=== PATIENT | female | born 1965 | race Asian ===

== ENCOUNTER 2023-06-21 15:50 | Outpatient (AMB) | payer OTHER, SELFPAY ==
[2023-06-21 16:18] VITALS: BP 148/90; PULSE 72; O2SAT 98; BMI 27.2
--- NOTE | 2023-06-21 16:18 | HO.NEPHOV ---
HPI HPI Comments History of Present Illness Details I had the privilege of seeing Chacha in follow-up of her proteinuria and hypertension. She has been going through a lot of family stressors. Her antihypertensive medication had been adjusted lately due to fluctuant blood pressures. She does not have any chest pain, shortness of breath, paroxysmal nocturnal dyspnea, orthopnea, pedal edema, orthostatic symptoms, hematuria or dysuria. She does not have any foam or froth in the urine. She is compliant with her medications. She tries to maintain herself with a good hydration and avoid nonsteroidal anti-inflammatories. All other systems were reviewed and were negative. [facility] Medical History (Updated 06/21/23 @ 20:41 by Micah Coleman MD) Hypertension Proteinuria Family History (Updated 06/21/23 @ 16:22 by Alyssa Davis MA) Mother Diabetes Hypertension Social History (Updated 06/21/23 @ 16:22 by Alyssa Davis MA) Alcohol intake: never Patient Tobacco Use Status: Never used Tobacco Vital Signs 06/21/23 16:18 Height 5 ft Weight 139 lb 8 oz BMI 27.2 BP 148/90 H Blood Pressure Location Lt brachial Position Sitting Pulse 72 Pulse Source Pulse Oximeter Pulse Oximetry (%) 98 Oxygen Delivery Method Room Air Physical Exam Vital Signs: Last Vital Signs Pulse 72 06/21/23 16:18 BP 148/90 H 06/21/23 16:18 Pulse Ox 98 06/21/23 16:18 Oxygen Delivery Method Room Air 06/21/23 16:18 BMI result Body Mass Index 27.2 Const General: comfortable and no acute distress Orientation/consciousness: patient oriented x3 HEENT Head: Yes normocephalic Mouth: Normal oral and palatal mucosa present Eyes EOM: EOMs intact bilaterally Neck Neck: Yes supple Resp Auscultation: clear to auscultation bilaterally Cardio Jugular venous distension: no JVD Rate: regular rate GI Palpation (GI): Soft to palpation Auscultation: normal bowel sounds General: Yes no CVA tenderness Back/Spine/Pelvis Back: no CVA tenderness Skin General skin exam: no rashes or lesions noted Neuro General: patient oriented x3 and moves all extremities Extrem General: Yes no pedal edema Assessment & Plan Assessment & Plan (1) Proteinuria: Code(s): R80.9 - Proteinuria, unspecified Qualifiers: Proteinuria type: other Qualified Code(s): R80.8 - Other proteinuria (2) Hypertension: Code(s): I10 - Essential (primary) hypertension Qualifiers: Hypertension type: primary hypertension Qualified Code(s): I10 - Essential (primary) hypertension Plan Chacha has hypertension for long time. She had proteinuria which had been stable. Her blood pressure has been fluctuant lately. She has been prescribed valsartan 160 mg twice daily but she has been taking only once a day. I increased her valsartan to 240 mg once daily. She could continue her current dose of hydrochlorothiazide. She needs to maintain good hydration and avoid nonsteroidal anti-inflammatories. She should cut back salt in the diet. I ordered follow-up blood work. She is going to see me in a month time for optimization of her medication regimen. Answered all questions. Follow-up appointment given. Orders: Orders Creatinine Today I10 - Essential (primary) hypertension, R80.9 - Proteinuria, unspecified Electrolytes Today I10 - Essential (primary) hypertension, R80.9 - Proteinuria, unspecified Blood Urea Nitrogen Today I10 - Essential (primary) hypertension, R80.9 - Proteinuria, unspecified Protein Creatinine Ratio, Ur Today I10 - Essential (primary) hypertension, R80.9 - Proteinuria, unspecified Medications: New valsartan 240 mg (1.5 x 160 mg) PO DAILY 30 days 45 tabs 3RF valsartan 240 mg (1.5 x 160 mg) PO DAILY 30 days 45 tabs 3RF Coding Level of Care Code Est Pt Level 4 (92866) Diagnoses Other proteinuria R80.8 Proteinuria type: other Primary hypertension I10 Hypertension type: primary hypertension Results Reviewed Nephrology Results: No Data to Display
== END 2023-06-21 16:46 | disposition home or self-care (01) ==
PROVIDERS: Visit Provider Internal Medicine Nephrology
DX: R80.8 Other proteinuria (principal); I10 Essential (primary) hypertension
CPT/HCPCS: 99214

== ENCOUNTER → 2023-06-21 15:50 | Outpatient (BNVA) | payer OTHER, SELFPAY | PROVIDERS: Visit Provider Internal Medicine Nephrology | DX: I10 Essential (primary) hypertension (principal); R80.8 Other proteinuria | CPT/HCPCS: 99212 ==

== ENCOUNTER 2023-07-14 12:28 | Outpatient (REF) | payer OTHER, SELFPAY ==
[2023-07-14 17:06] LABS: Anion Gap 11 (12-20); Blood Urea Nitrogen 20 mg/dL (9-16); Carbon Dioxide 29 mmol/L (22-29); Chloride 103 mmol/L (96-108); Estimated Glomerular Filt Rate > 60; Potassium 3.7 mmol/L (3.3-5.1); Sodium 139 mmol/L (135-145)
[2023-07-14 17:28] LABS: Creatinine Urine 50.51 mg/dL; Protein/Creatinine Ratio, Ur 0.16 (<0.2); Total Protein Urine Random 8 mg/dL (<12)
== END 2023-07-14 12:29 | disposition home or self-care (01) ==
LOC: HO.HKASLDS 12:28
PROVIDERS: Visit Provider Internal Medicine Nephrology
DX: R80.9 Proteinuria, unspecified (principal); I10 Essential (primary) hypertension
CPT/HCPCS: 36415; 80051; 82565; 82570; 84156; 84520

== ENCOUNTER 2023-07-21 16:02 | Outpatient (AMB) | payer OTHER, SELFPAY ==
[2023-07-21 16:21] VITALS: BP 160/90; PULSE 65; O2SAT 96; BMI 27.2
--- NOTE | 2023-07-21 16:21 | HO.NEPHOV_ITS ---
Vital Signs 07/21/23 16:21 Height 5 ft Weight 139 lb 8 oz BMI 27.2 BP 160/90 H Blood Pressure Location Lt brachial Position Sitting Pulse 65 Pulse Source Pulse Oximeter Pulse Oximetry (%) 96 Oxygen Delivery Method Room Air Intake Visit Reasons: 1 mon follow up/ LVM Weight Inspector Required: No Accompanied by: Self / Same As Patient Allergies acetaminophen [From Tylenol] Allergy (Verified 07/21/23 16:23) Unknown prochlorperazine [From Compazine] Allergy (Verified 07/21/23 16:23) Unknown sulfur dioxide Allergy (Verified 07/21/23 16:23) Unknown HPI Comments Details: I had the privilege of seeing Chacha in follow-up of her proteinuria and hypertension. She has been going through a lot of family stressors. Her antihypertensive medication had been adjusted lately due to fluctuant blood pressures. She does not have any chest pain, shortness of breath, paroxysmal nocturnal dyspnea, orthopnea, pedal edema, orthostatic symptoms, hematuria or dysuria. She does not have any foam or froth in the urine. She is compliant with her medications. She tries to maintain herself with a good hydration and avoid nonsteroidal anti-inflammatories. All other systems were reviewed and were negative. [facility] Medical History (Updated 06/21/23 @ 20:41 by Micah Coleman MD) Hypertension Proteinuria Family History Mother Diabetes Hypertension Social History Alcohol intake: never Patient Tobacco Use Status: Never used Tobacco Physical Exam Vital Signs: Last Vital Signs Pulse 65 07/21/23 16:21 BP 160/90 H 24 16:21 Pulse Ox 96 07/21/23 16:21 Oxygen Delivery Method Room Air 07/21/23 16:21 BMI result Body Mass Index 27.2 Const General: comfortable and no acute distress Orientation/consciousness: patient oriented x3 HEENT Head: Yes normocephalic Mouth: Normal oral and palatal mucosa present Eyes EOM: EOMs intact bilaterally Neck Neck: Yes supple Resp Auscultation: clear to auscultation bilaterally Cardio Jugular venous distension: no JVD Rate: regular rate GI Palpation (GI): Soft to palpation Auscultation: normal bowel sounds General: Yes no CVA tenderness Back/Spine/Pelvis Back: no CVA tenderness Skin General skin exam: no rashes or lesions noted Neuro General: patient oriented x3 and moves all extremities Extrem General: Yes no pedal edema Results Reviewed Nephrology Results: Sodium 139 mmol/L (135-145) 07/14/23 Potassium 3.7 mmol/L (3.3-5.1) 07/14/23 Chloride 103 mmol/L (96-108) 07/14/23 Carbon Dioxide 29 mmol/L (22-29) 07/14/23 BUN 20 mg/dL (9-16) H 07/14/23 Creatinine 0.74 mg/dL (0.5-1.4) 07/14/23 Urine Creatinine 50.51 mg/dL 07/14/23 Protein/Creatinin Ratio 0.16 (<0.2) 07/14/23 Assessment & Plan Assessment & Plan (1) Hypertension: Code(s): I10 - Essential (primary) hypertension Category: Medical Qualifiers: Hypertension type: primary hypertension Qualified Code(s): I10 - Essential (primary) hypertension (2) Proteinuria: Code(s): R80.9 - Proteinuria, unspecified Category: Medical Qualifiers: Proteinuria type: other Qualified Code(s): R80.8 - Other proteinuria Plan Chacha has hypertension for long time. She had proteinuria which had been stable. Her blood pressure has been fluctuant lately. I increased her to valsartan 160 mg twice daily . She could continue her current dose of hydrochlorothiazide. She needs to maintain good hydration and avoid nonsteroidal anti-inflammatories. She should cut back salt in the diet. Her labs were reviewed and stable. She is going to see me in a month time for optimization of her medication regimen. Answered all questions. Follow-up appointment given Medications: New hydrochlorothiazide 12.5 mg PO DAILY 90 tabs 2RF Changed From valsartan 240 mg (1.5 x 160 mg) PO DAILY 30 days 45 tabs 3RF To valsartan 320 mg (2 x 160 mg) PO DAILY 30 days 60 tabs 3RF
== END 2023-07-21 16:38 | disposition home or self-care (01) ==
PROVIDERS: Visit Provider Internal Medicine Nephrology
DX: I10 Essential (primary) hypertension (principal); R80.8 Other proteinuria
CPT/HCPCS: 99214

== ENCOUNTER → 2023-07-21 16:02 | Outpatient (BNVA) | payer OTHER, SELFPAY | PROVIDERS: Visit Provider Internal Medicine Nephrology | DX: I10 Essential (primary) hypertension (principal); R80.9 Proteinuria, unspecified | CPT/HCPCS: 99212 ==

== ENCOUNTER 2023-08-18 16:18 | Outpatient (AMB) | payer OTHER, SELFPAY ==
[2023-08-18 16:21] VITALS: BP 140/80; PULSE 67; O2SAT 97
--- NOTE | 2023-08-18 16:21 | HO.NEPHOV ---
Vital Signs 08/18/23 16:21 Weight 140 lb 2 oz BP 140/80 H Blood Pressure Location Lt brachial Position Sitting Pulse 67 Pulse Source Pulse Oximeter Pulse Oximetry (%) 97 Oxygen Delivery Method Room Air Intake Visit Reasons: 1 mon follow up/ Confirmed Chemical Manager Required: No Accompanied by: Self / Same As Patient Allergies acetaminophen [From Tylenol] Allergy (Verified 08/18/23 16:23) Unknown prochlorperazine [From Compazine] Allergy (Verified 08/18/23 16:23) Unknown sulfur dioxide Allergy (Verified 08/18/23 16:23) Unknown HPI Comments Details: I had the privilege of seeing Chacha in follow-up of her proteinuria and hypertension. She has been going through a lot of family stressors. Her antihypertensive medication had been adjusted lately due to fluctuant blood pressures. She does not have any chest pain, shortness of breath, paroxysmal nocturnal dyspnea, orthopnea, pedal edema, orthostatic symptoms, hematuria or dysuria. She does not have any foam or froth in the urine. She is compliant with her medications. She tries to maintain herself with a good hydration and avoid nonsteroidal anti-inflammatories. All other systems were reviewed and were negative. [facility] Medical History (Updated 06/21/23 @ 20:41 by Micah Coleman MD) Hypertension Proteinuria Family History Mother Diabetes Hypertension Social History Alcohol intake: never Patient Tobacco Use Status: Never used Tobacco Physical Exam Vital Signs: Last Vital Signs Pulse 67 08/18/23 16:21 BP 140/80 H 08/18/23 16:21 Pulse Ox 97 08/18/23 16:21 Oxygen Delivery Method Room Air 08/18/23 16:21 Const General: comfortable and no acute distress Orientation/consciousness: patient oriented x3 HEENT Head: Yes normocephalic Mouth: Normal oral and palatal mucosa present Eyes EOM: EOMs intact bilaterally Neck Neck: Yes supple Resp Auscultation: clear to auscultation bilaterally Cardio Jugular venous distension: no JVD Rate: regular rate GI Palpation (GI): Soft to palpation Auscultation: normal bowel sounds General: Yes no CVA tenderness Back/Spine/Pelvis Back: no CVA tenderness Skin General skin exam: no rashes or lesions noted Neuro General: patient oriented x3 and moves all extremities Extrem General: Yes no pedal edema Results Reviewed Nephrology Results: Sodium 139 mmol/L (135-145) 07/14/23 Potassium 3.7 mmol/L (3.3-5.1) 07/14/23 Chloride 103 mmol/L (96-108) 07/14/23 Carbon Dioxide 29 mmol/L (22-29) 07/14/23 BUN 20 mg/dL (9-16) H 07/14/23 Creatinine 0.74 mg/dL (0.5-1.4) 07/14/23 Urine Creatinine 50.51 mg/dL 07/14/23 Protein/Creatinin Ratio 0.16 (<0.2) 07/14/23 Assessment & Plan Assessment & Plan (1) Hypertension: Code(s): I10 - Essential (primary) hypertension Category: Medical Qualifiers: Hypertension type: primary hypertension Qualified Code(s): I10 - Essential (primary) hypertension (2) Proteinuria: Code(s): R80.9 - Proteinuria, unspecified Category: Medical Qualifiers: Proteinuria type: other Qualified Code(s): R80.8 - Other proteinuria Plan Chacha has hypertension for long time. She had proteinuria which had been stable. Her blood pressure is at goal after I increased valsartan to 160 mg twice daily . She could continue her current dose of hydrochlorothiazide. She needs to maintain good hydration and avoid nonsteroidal anti-inflammatories. She should cut back salt in the diet. Her labs were reviewed and stable. Answered all questions. Follow-up appointment given Orders: Orders Creatinine Today I10 - Essential (primary) hypertension, R80.8 - Other proteinuria Electrolytes Today I10 - Essential (primary) hypertension, R80.8 - Other proteinuria Blood Urea Nitrogen Today I10 - Essential (primary) hypertension, R80.8 - Other proteinuria Protein Creatinine Ratio, Ur Today I10 - Essential (primary) hypertension, R80.8 - Other proteinuria Medications: Changed From valsartan 320 mg (2 x 160 mg) PO DAILY 30 days 60 tabs 3RF To valsartan 320 mg (2 x 160 mg) PO DAILY 90 days 180 tabs 3RF Coding Level of Care Code Est Pt Level 4 (03249) Diagnoses Primary hypertension I10 Hypertension type: primary hypertension Other proteinuria R80.8 Proteinuria type: other
== END 2023-08-18 16:36 | disposition home or self-care (01) ==
PROVIDERS: Visit Provider Internal Medicine Nephrology
DX: I10 Essential (primary) hypertension (principal); R80.8 Other proteinuria
CPT/HCPCS: 99214

== ENCOUNTER → 2023-08-18 16:18 | Outpatient (BNVA) | payer OTHER, SELFPAY | PROVIDERS: Visit Provider Internal Medicine Nephrology | DX: R80.8 Other proteinuria (principal); I10 Essential (primary) hypertension; Z79.899 Other long term (current) drug therapy | CPT/HCPCS: 99212 ==

== ENCOUNTER 2024-02-09 12:25 | Outpatient (REF) | payer OTHER, SELFPAY ==
[2024-02-09 17:59] LABS: Anion Gap 13 (12-20); Blood Urea Nitrogen 23 mg/dL (9-16); Carbon Dioxide 29 mmol/L (22-29); Chloride 100 mmol/L (96-108); Estimated Glomerular Filt Rate > 60; Potassium 3.5 mmol/L (3.3-5.1); Sodium 138 mmol/L (135-145)
[2024-02-09 18:20] LABS: Creatinine Urine 52.08 mg/dL; Total Protein Urine Random < 7 mg/dL (<12)
== END 2024-02-09 12:26 | disposition home or self-care (01) ==
LOC: HO.HKASLDS 12:25
PROVIDERS: Visit Provider Internal Medicine Nephrology
DX: I10 Essential (primary) hypertension (principal); R80.8 Other proteinuria
CPT/HCPCS: 36415; 80051; 82565; 82570; 84156; 84520

== ENCOUNTER 2024-02-16 15:57 | Outpatient (AMB) | payer OTHER, SELFPAY ==
[2024-02-16 15:58] VITALS: BP 120/80; PULSE 75; O2SAT 96; BMI 27.5
--- NOTE | 2024-02-16 15:58 | HO.NEPHOV ---
Vital Signs 02/16/24 15:58 Height 5 ft Weight 141 lb BMI 27.5 BP 120/80 Blood Pressure Location Lt brachial Position Sitting Pulse 75 Pulse Source Pulse Oximeter Pulse Oximetry (%) 96 Oxygen Delivery Method Room Air Intake Visit Reasons: 6 mon follow up-Conf Shared Services Representative Required: No Accompanied by: Self / Same As Patient Allergies acetaminophen [From Tylenol] Allergy (Verified 02/16/24 15:58) Unknown prochlorperazine [From Compazine] Allergy (Verified 02/16/24 15:58) Unknown sulfur dioxide Allergy (Verified 02/16/24 15:58) Unknown HPI Comments Details: I had the privilege of seeing Chacha in follow-up of her proteinuria and hypertension. Her antihypertensive medication had been adjusted lately due to fluctuant blood pressures. She does not have any chest pain, shortness of breath, paroxysmal nocturnal dyspnea, orthopnea, pedal edema, orthostatic symptoms, hematuria or dysuria. She does not have any foam or froth in the urine. She is compliant with her medications. She tries to maintain herself with a good hydration and avoid nonsteroidal anti-inflammatories. All other systems were reviewed and were negative. [facility] Medical History (Updated 06/21/23 @ 20:41 by Micah Coleman MD) Hypertension Proteinuria Family History Mother Diabetes Hypertension Social History Alcohol intake: never Patient Tobacco Use Status: Never used Tobacco Review of Systems Const All systems reviewed & are unremarkable except as noted in HPI and below Physical Exam Vital Signs: Last Vital Signs Pulse 75 02/16/24 15:58 BP 120/80 02/16/24 15:58 Pulse Ox 96 02/16/24 15:58 Oxygen Delivery Method Room Air 02/16/24 15:58 BMI result Body Mass Index 27.5 Const General: comfortable and no acute distress Orientation/consciousness: patient oriented x3 HEENT Head: Yes normocephalic Mouth: Normal oral and palatal mucosa present Eyes EOM: EOMs intact bilaterally Neck Neck: Yes supple Resp Auscultation: clear to auscultation bilaterally Cardio Jugular venous distension: no JVD Rate: regular rate GI Palpation (GI): Soft to palpation Auscultation: normal bowel sounds General: Yes no CVA tenderness Back/Spine/Pelvis Back: no CVA tenderness Skin General skin exam: no rashes or lesions noted Neuro General: patient oriented x3 and moves all extremities Extrem General: Yes no pedal edema Results Reviewed Nephrology Results: Sodium 138 mmol/L (135-145) 02/09/24 Potassium 3.5 mmol/L (3.3-5.1) 02/09/24 Chloride 100 mmol/L (96-108) 02/09/24 Carbon Dioxide 29 mmol/L (22-29) 02/09/24 BUN 23 mg/dL (9-16) H 02/09/24 Creatinine 0.64 mg/dL (0.5-1.4) 02/09/24 Urine Creatinine 52.08 mg/dL 02/09/24 Protein/Creatinin Ratio TNP 02/09/24 Assessment & Plan Assessment & Plan (1) Proteinuria: Code(s): R80.9 - Proteinuria, unspecified Category: Medical Qualifiers: Proteinuria type: other Qualified Code(s): R80.8 - Other proteinuria (2) Hypertension: Code(s): I10 - Essential (primary) hypertension Category: Medical Qualifiers: Hypertension type: primary hypertension Qualified Code(s): I10 - Essential (primary) hypertension Plan Chacha has hypertension for long time. She had proteinuria which had been stable. Her blood pressure is at goal . She could continue her current dose of hydrochlorothiazide. She needs to maintain good hydration and avoid nonsteroidal anti-inflammatories. She should cut back salt in the diet. Her labs were reviewed and stable. Answered all questions. Follow-up appointment given Orders: Orders Creatinine 8 Months I10 - Essential (primary) hypertension, R80.8 - Other proteinuria Blood Urea Nitrogen 8 Months I10 - Essential (primary) hypertension, R80.8 - Other proteinuria Electrolytes 8 Months I10 - Essential (primary) hypertension, R80.8 - Other proteinuria Calcium 8 Months I10 - Essential (primary) hypertension, R80.8 - Other proteinuria Protein Creatinine Ratio, Ur 8 Months I10 - Essential (primary) hypertension, R80.8 - Other proteinuria Medications: Changed From hydrochlorothiazide 12.5 mg PO DAILY 90 tabs 2RF To hydrochlorothiazide 12.5 mg (1/2 x 25 mg) PO DAILY 90 tabs 4RF Coding Level of Care Code Est Pt Level 4 (67415) Diagnoses Other proteinuria R80.8 Proteinuria type: other Primary hypertension I10 Hypertension type: primary hypertension
== END 2024-02-16 16:30 | disposition home or self-care (01) ==
PROVIDERS: Visit Provider Internal Medicine Nephrology
DX: R80.8 Other proteinuria (principal); I10 Essential (primary) hypertension
CPT/HCPCS: 99214

== ENCOUNTER → 2024-02-16 15:57 | Outpatient (BNVA) | payer OTHER, SELFPAY | PROVIDERS: Visit Provider Internal Medicine Nephrology | DX: I10 Essential (primary) hypertension (principal); R80.8 Other proteinuria | CPT/HCPCS: 99212 ==

== ENCOUNTER 2024-10-12 13:25 | Outpatient (REF) | payer OTHER, SELFPAY ==
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
[2024-10-12 17:46] LABS: Total Protein Urine Random < 7 mg/dL (<12)
[2024-10-12 17:58] LABS: Anion Gap 11 (12-20); Blood Urea Nitrogen 21 mg/dL (9-16); Calcium 9.3 mg/dL (8.4-10.2); Carbon Dioxide 30 mmol/L (22-29); Chloride 103 mmol/L (96-108); Estimated Glomerular Filt Rate > 60; Potassium 3.6 mmol/L (3.3-5.1); Sodium 140 mmol/L (135-145)
== END 2024-10-12 13:26 | disposition home or self-care (01) ==
LOC: HO.HKASLDS 13:25
PROVIDERS: Visit Provider Internal Medicine Nephrology
DX: I10 Essential (primary) hypertension (principal); R80.8 Other proteinuria
CPT/HCPCS: 36415; 80051; 82310; 82565; 82570; 84156; 84520

== ENCOUNTER 2024-10-18 15:42 | Outpatient (AMB) | payer OTHER, SELFPAY ==
--- NOTE | 2024-10-18 16:05 | HO.NEPHOV_ITS ---
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 Her BP is well controlled now. She does not have any chest pain, shortness of breath, paroxysmal nocturnal dyspnea, orthopnea, pedal edema, orthostatic symptoms, hematuria or dysuria. She does not have any foam or froth in the urine. She is compliant with her medications. She tries to maintain herself with a good hydration and avoid nonsteroidal anti-inflammatories. All other systems were reviewed and were negative. [facility] Medical History (Updated 06/21/23 @ 20:41 by Micah Coleman MD) Hypertension Proteinuria Family History Mother Diabetes Hypertension Social History Alcohol intake: never Patient Tobacco Use Status: Never used Tobacco Review of Systems Const All systems reviewed & are unremarkable except as noted in HPI and below Physical Exam Vital Signs: Last Vital Signs Pulse 67 10/18/24 16:07 BP 124/80 10/18/24 16:07 Pulse Ox 97 10/18/24 16:07 Oxygen Delivery Method Room Air 10/18/24 16:07 BMI result Body Mass Index 26.6 Const General: comfortable and no acute distress Orientation/consciousness: patient oriented x3 HEENT Head: Yes normocephalic Mouth: Normal oral and palatal mucosa present Eyes EOM: EOMs intact bilaterally Neck Neck: Yes supple Resp Auscultation: clear to auscultation bilaterally Cardio Jugular venous distension: no JVD Rate: regular rate GI Palpation (GI): Soft to palpation Auscultation: normal bowel sounds General: Yes no CVA tenderness Back/Spine/Pelvis Back: no CVA tenderness Skin General skin exam: no rashes or lesions noted Neuro General: patient oriented x3 and moves all extremities Extrem General: Yes no pedal edema Results Reviewed Nephrology Results: Sodium, (135-145) 140 mmol/L 10/12/24 Potassium, (3.3-5.1) 3.6 mmol/L 10/12/24 Chloride, (96-108) 103 mmol/L 10/12/24 Carbon Dioxide, (22-29) 30 mmol/L H 10/12/24 BUN, (9-16) 21 mg/dL H 10/12/24 Creatinine, (0.5-1.4) 0.75 mg/dL 10/12/24 Calcium, (8.4-10.2) 9.3 mg/dL 10/12/24 Urine Creatinine 56.00 mg/dL 10/12/24 Protein/Creatinin Ratio TNP 10/12/24 Assessment & Plan Assessment & Plan (1) Hypertension: Code(s): I10 - Essential (primary) hypertension Category: Medical Qualifiers: Hypertension type: primary hypertension Qualified Code(s): I10 - Essential (primary) hypertension Plan Chacha has hypertension for a long time. She had proteinuria which had been stable. Her blood pressure is at goal on current medication regimen . She could continue her current dose of hydrochlorothiazide. She needs to maintain good hydration and avoid nonsteroidal anti-inflammatories. She should cut back salt in the diet. Her labs were reviewed and stable. Answered all questions. Follow-up appointment given Orders: Orders Creatinine 1 Year I10 - Essential (primary) hypertension Blood Urea Nitrogen 1 Year I10 - Essential (primary) hypertension Electrolytes 1 Year I10 - Essential (primary) hypertension Protein Creatinine Ratio, Ur 1 Year I10 - Essential (primary) hypertension Coding Level of Care Code Est Pt Level 4 (39013) Diagnoses Primary hypertension I10 Hypertension type: primary hypertension
[2024-10-18 16:07] VITALS: BP 124/80; PULSE 67; O2SAT 97; BMI 26.6
--- OUTSIDE RECORDS SUMMARY | 2024-10-18 16:13 | XMS_ITS | Clinical Summary ---
Author Organization [facility] Address [address] [place] [address] Phone Care Team Providers Care Php Engineer Name Role Phone Roxanna Dior PRE OWNED SALES CONSULTANT Primary Care Provider Allergies Active Allergy Reactions [...] by the [employer] [place], where she grew up. Patient has been [...] 03/04/2021, 01/10/2019, Additional history exists Care Teams Php Engineer Relationship Specialty Start Date End Date Roxanna Dior NP [address] [place] [address] PCP - General Nurse Practitioner 05/20/22
== END 2024-10-18 16:17 | disposition home or self-care (01) ==
LOC: HO.HKAS 15:42
PROVIDERS: Visit Provider Internal Medicine Nephrology
DX: I10 Essential (primary) hypertension (principal)
CPT/HCPCS: 99214

== ENCOUNTER → 2024-10-18 15:42 | Outpatient (BNVA) | payer OTHER, SELFPAY | PROVIDERS: Visit Provider Internal Medicine Nephrology | DX: I10 Essential (primary) hypertension (principal); R80.9 Proteinuria, unspecified | CPT/HCPCS: 99212 ==